=== PATIENT | male | born 1990 | race Caucasian/White ===

== ENCOUNTER 2025-05-15 10:51 | Emergency (ER) | payer SELFPAY ==
[2025-05-15 11:02] VITALS: BP 123/68; PULSE 61; RESP 18; TEMP 36.9; O2SAT 100
--- NOTE | 2025-05-15 11:39 | ED.EAR ---
HPI - Ear Problem General Chief complaint: Ear Stated complaint: Ear Pain Time Seen by Provider: 05/15/25 11:10 Source: patient and RN notes reviewed Mode of arrival: ambulatory Limitations: no limitations History of Present Illness HPI Narrative: Patient presents today complaining of left ear pressure this morning. He tried a Q-tip to see if he could clear his ear and took a hot shower and now states the ears muffled. Denies pain or any additional symptoms Related Data Home Medications ?Medication ?Instructions ?Recorded ?Confirmed ?Last Taken ?Type No Home Medications 05/15/25 05/15/25 Unknown History Allergies Allergy/AdvReac Type Severity Reaction Status Date / Time No Known Allergies Allergy Verified 05/15/25 11:25 [facility] Comments At time of signature, I have reviewed and agree with nursing past medical, surgical, social and family history unless otherwise noted. Please see nursing chart for further information. There is no relevant family history pertinent to the presenting complaint Exam Narrative: GENERAL: Well-appearing, well-nourished, and in no acute distress. HEAD: Normocephalic, atraumatic. EYES: EOMI. No redness or drainage. Conjunctivae normal. ENT: Mucous membranes pink and moist. Bilateral cerumen impactions noted. Small superficial abrasion noted to the left ear canal just at the entrance. NECK: Normal AROM. CHEST: No respiratory distress. EXTREMITIES: Normal range of motion. No edema. SKIN: Warm, dry, no rash. Capillary refill normal. Normal skin turgor. NEURO: No focal deficits. Alert and oriented x3. Gait steady. PSYCH: Normal affect. No signs of depression or anxiety. Course Course Level of Care: Express Care Visit Vital Signs Vital signs: Vital Signs Temperature 98.5 F 05/15/25 11:02 Pulse Rate 61 05/15/25 11:02 Respiratory Rate 18 05/15/25 11:02 Blood Pressure 123/68 05/15/25 11:02 Pulse Oximetry 100 05/15/25 11:02 Temperature 98.5 F 05/15/25 11:02 Pulse Rate 61 05/15/25 11:02 Respiratory Rate 18 05/15/25 11:02 Blood Pressure 123/68 05/15/25 11:02 Pulse Oximetry 100 05/15/25 11:02 Reviewed Procedures Ear Wax Removal Both Ears: Ear Wax Removal Date: 05/15/25 Ear Wax Removal Time: 11:30 Cerumenolytic Used: other (None) Results: Re-examined: cerumen removed completely TM Examination: TM(s) intact, normal appearance Ear Canal Exam: atraumatic Patient Tolerated Procedure: well Complications: no problems Technique: ear canal irrigated and ear canal curetted Medical Decision Making MDM Narrative Medical decision making narrative: 34-year-old male patient presents today with left ear pressure and muffling, believes he has a cerumen impaction. Upon exam, patient has bilateral cerumen impaction. Irrigated with water cerumen impactions were completely removed. Bilateral TMs normal, canals normal aside small abrasion externally on the left. This discussed with patient today's Q-tips in the future. Vital Signs stable. Anticipatory guidance given. Differential Diagnosis Differential Diagnosis: Otitis media, otitis externa, ruptured TM, serous otitis, cerumen impaction Vital Signs Vital Signs: Vital Signs Temperature 98.5 F 05/15/25 11:02 Pulse Rate 61 05/15/25 11:02 Respiratory Rate 18 05/15/25 11:02 Blood Pressure 123/68 05/15/25 11:02 Pulse Oximetry 100 05/15/25 11:02 Temperature 98.5 F 05/15/25 11:02 Pulse Rate 61 05/15/25 11:02 Respiratory Rate 18 05/15/25 11:02 Blood Pressure 123/68 05/15/25 11:02 Pulse Oximetry 100 05/15/25 11:02 Critical Care Time Critical Care Time Critical Care Time: No Discharge Plan Discharge Clinical Impression: Bilateral impacted cerumen Patient Disposition: Home Condition: Stable Additional Instructions: Ear wax has been removed from both ears. Try not to use Q-tips in the future as this pushes wax further into your ear. Use wax softening drops and flushed with water if needed. Follow-up with your PCP with any additional concerns. Your blood pressure was elevated above 120/80 today at Urgent Care. This puts you above the threshold for follow up. Please schedule a followup visit with your personal physician as soon as possible, for further evaluation and treatment. Even blood pressure exceeding 120/80 may indicate pre-hypertension. Patient Language: Croatian Prescriptions: No Action No Home Medications Follow-up/Referrals: PHYSICIAN,[facility] [Primary Care Provider] - Time of Disposition: 11:33
== END 2025-05-15 11:34 | disposition home or self-care (01) ==
PROVIDERS: Emergency Provider Nurse Practitioner
DX: H61.23 Impacted cerumen, bilateral (principal)
CPT/HCPCS: 69210; 99202; G0463